=== PATIENT | male | born 1960 | race Caucasian/White ===

== ENCOUNTER 2021-06-21 00:19 | Day surgery (SDC) | payer OTHER, SELFPAY ==
[2021-06-07 14:17] VITALS: BMI 28.3
[2021-06-21 06:27] VITALS: BMI 28.8
[2021-06-21] MEDS: LACTATED RINGERS 1,000 ML 30 ML IV CONT (06:35)
[2021-06-21 06:36] VITALS: BP 122/56; PULSE 57; RESP 16; TEMP 36.1; O2SAT 100
--- NOTE | 2021-06-21 06:54 | WPDANESEPPF ---
Anes - Initial Pre Proc Eval Procedure: Operation Date: 06/21/21 07:30 Proposed Procedures p Screening Colonoscopy - Chao Dc MD Date/Time: 06/21/21 06:54 Surgeon: Chao Dc MD Pre Op Diagnosis: neoplasm screening Patient Data Age: 60 Gender: M Height: 1.78 m Weight: 91 kg Last Vital Signs Temp 36.1 C L 06/21/21 06:36 Pulse 57 L 06/21/21 06:36 Resp 16 06/21/21 06:36 BP 122/56 L 06/21/21 06:36 Pulse Ox 100 06/21/21 06:36 Allergies Allergy/AdvReac Type Severity Reaction Status Date / Time NKDA Allergy Unknown Other Uncoded 06/21/21 06:25 Home Medications Medication Instructions Recorded Confirmed Type [id number] 1 tablet PO DAILY 06/07/21 06/21/21 History [Multivitamin 50 Plus] omega-3 fatty acids [Fish Oil] 1,000 mg PO BID 06/07/21 06/21/21 History Patient hx anesthesia problems: none Family hx anesthesia problems: none [facility] Past Medical History Medical History (Updated 06/21/21 @ 06:54 by Mirza Go MD) Overweight Surgical History Surgical History (Updated 06/21/21 @ 06:55 by Mirza Go MD) H/O colonoscopy Social History Social History Smoking packs per day: 1 Smoking cigarettes per day: 20.0 Years smoked: 30 Smoking pack-years: 30.00 Smoking status: Former smoker Smoking end date: 11/27/04 Alcohol use details: rarely Living arrangements: with family Spiritual care concerns: No Anes - Eval Final PreProcedure Day of Procedure 06/21/21 06:54 Patient weight: overweight Heart: regular rate and rhythm Lungs: clear to auscultation Airway: Mallampati scale class II Neurological: alert and oriented Last oral intake: >/= 8 hours ASA classification: II Emergent: no Anesthetic plan: proceed Anesthesia type and monitoring: general GIVS and standard monitoring Informed Consent: The patient's anesthetic plan and its attendant risks and benefits were discussed with the patient/family/POA. Questions were solicited and answers provided to the satisfaction of the patient/family/POA.
--- NOTE | 2021-06-21 07:23 | PM.HPGS ---
History of Present Illness History of Present Illness Consent: Risks, benefits, and alternatives have been discussed and questions answered. Patient agrees to proceed with procedure. Chief complaint: neoplasm screening Narrative: Giuseppe Shultz is a 60 year old male with his last colonoscopy 7 years ago, had father with colon cancer Review of Systems Constitutional: Constitutional: Denies headache(s) and Denies weakness Eyes: Eyes: Denies blurry vision ENT: Reports Normal hearing present, Denies headache(s) and Denies neck pain Cardiovascular: Cardiovascular: Denies chest pain and Denies dyspnea Respiratory: Respiratory: Denies dyspnea Gastrointestinal: Gastrointestinal: Reports no additional gastrointestinal complaints Genitourinary: Genitourinary: Denies dysuria Musculoskeletal: Musculoskeletal: Denies neck pain Integumentary/Breasts: Skin/Breast: Denies dry skin Neurologic: Reports Normal hearing present, Denies headache(s) and Denies weakness Psychiatric: Psychiatric: Denies anxiety Endocrine: Endocrine: Denies change in body appearance Hematologic/Lymphatic: Hematologic/Lymphatic: Denies easy bleeding Allergic/Immunologic: Allergic/Immunologic: Denies urticaria PMFSH Past Medical History Medical History (Updated 06/21/21 @ 07:23 by Chao Dc MD) Colon cancer screening Overweight Surgical History Surgical History (Updated 06/21/21 @ 06:55 by Mirza Go MD) H/O colonoscopy Social History Social History Smoking packs per day: 1 Smoking cigarettes per day: 20.0 Years smoked: 30 Smoking pack-years: 30.00 Smoking status: Former smoker Smoking end date: 11/27/04 Alcohol use details: rarely Living arrangements: with family Spiritual care concerns: No Meds Home Medications and Allergies Home Medications Medication Instructions Recorded Confirmed Type [id number]-xykfqedt-cocveg 1 tablet PO DAILY 06/07/21 06/21/21 History [Multivitamin 50 Plus] omega-3 fatty acids [Fish Oil] 1,000 mg PO BID 06/07/21 06/21/21 History Allergies Allergy/AdvReac Type Severity Reaction Status Date / Time NKDA Allergy Unknown Other Uncoded 06/21/21 06:25 Vital Signs Vital Signs - 24 hr 06/21/21 06:36 Temperature 97 F L Pulse Rate 57 L Respiratory Rate 16 Blood Pressure 122/56 L Pulse Oximetry 100 Exam Const: General: comfortable and no acute distress HENMT: General nose exam: Normal nares present Eyes: General: appearance normal, both eyes and all related structures Neck: Neck: no JVD Resp: Auscultation: clear to auscultation bilaterally Cardio: Rate: regular rate Rhythm: regular rhythm GI: Inspection: non-distended GI Palp: Yes Soft to palpation Skin: General skin exam: normal color Neuro: General: gait normal Speech: normal speech Extrem: General: normal to inspection Psych: Mental Status: mental status grossly normal Assessment and Plan Assessment and plan (1) Colon cancer screening: Code(s): Z12.11 - Encounter for screening for malignant neoplasm of colon Status: Acute Assessment and Plan: colon screening
[2021-06-21 07:45] VITALS: BP 95/62; PULSE 53; RESP 21; O2SAT 98
[2021-06-21 07:55] VITALS: BP 96/65; PULSE 55; RESP 16; O2SAT 98
[2021-06-21 08:03] VITALS: BP 105/66; PULSE 58; RESP 22; O2SAT 97
== END 2021-06-21 08:15 | disposition home or self-care (01) ==
LOC: ANHENDO 05:39 → ANHSURGERY 06:08 → ANHENDO 06:12
PROVIDERS: PCP Family Medicine; Visit Provider Internal Medicine Gastroenterology
PROC: 0DJD8ZZ Inspection of Lower Intestinal Tract, Via Natural or Artificial Opening Endoscopic (ICD-10-PCS; CPT 45378; principal; 2021-06-21 07:30)
DX: Z12.11 Encounter for screening for malignant neoplasm of colon (principal); Z80.0 Family history of malignant neoplasm of digestive organs; K57.30 Diverticulosis of large intestine without perforation or abscess without bleeding; K64.8 Other hemorrhoids; Z87.891 Personal history of nicotine dependence
CPT/HCPCS: 45378; J2704; J7120